=== PATIENT | male | born 1940 | race Caucasian/White ===

== ENCOUNTER 2018-07-13 19:23 | Observation (INO) | payer MEDICAID ==
[~2018-07-13] VITALS: Ht 170.2 cm; Wt 74.2 kg
[2018-07-13] MEDS ORDERED: POTASSIUM CHLORIDE (SR) 20 MEQ TAB PO STA (20:50)
[2018-07-13] MEDS ORDERED: NACL 0.9% 3 ML SYG IV SCH (21:30)
[2018-07-13] MEDS ORDERED: DOCUSATE SODIUM 100 MG CAP PO PRN (21:30)
[2018-07-13] MEDS ORDERED: ACETAMINOPHEN 325 MG TAB PO PRN (21:30)
[2018-07-13] MEDS ORDERED: BISACODYL (EC) 5 MG TAB PO PRN (21:30)
--- NOTE | 2018-07-13 21:30 | ERD ---
ER Documentation Chief Complaint Chief Complaint S/P FALL @1700, LANDED ON HAND, HAVING NUMBNESS AND DIZZINESS; NO CP HPI 77-year-old male with a history of hypertension, diabetes, and arterial bypass in the abdomen and left lower extremity brought in by family after he had an episode of numbness and weakness in his right upper and lower extremities at 5 PM today. He states due to the weakness and numbness, he lost his balance and fell against something but did not his head. His weakness and numbness have resolved but he still feels somewhat dizzy and nauseated. He denies any vision disturbance, significant headache, focal weakness or numbness at this time. He is only on aspirin, no other blood thinners. ROS All systems reviewed and are negative except as per history of present illness. PMhx/Soc History of Surgery: Yes (rt hip, left lower extremity arterial bypass, abdominal aorta surgery. Eye surgery) Anesthesia Reaction: No Hx Neurological Disorder: No Hx Respiratory Disorders: No Hx Cardiac Disorders: Yes (htn ) Hx Psychiatric Problems: No Hx Miscellaneous Medical Probl: Yes (dm2) Hx Alcohol Use: No Hx Substance Use: No Hx Tobacco Use: No Smoking Status: Former smoker FmHx Family History: diabetes Physical Exam Vitals Vital Signs Date Temp Pulse Resp B/P (MAP) Pulse Ox O2 O2 Flow FiO2 Time Delivery Rate 07/13/18 75 15 150/92 94 Room Air 20:05 (111) 07/13/18 98.5 102 19 141/87 100 19:24 (105) Physical Exam Const: No acute distress Head: Atraumatic Eyes: Normal Conjunctiva, PERRLA, EOMI, no nystagmus ENT: Normal External Ears, Nose and Mouth. Neck: Full range of motion. No meningismus. Resp: Clear to auscultation bilaterally Cardio: Regular rate and rhythm, no murmurs. 2+ distal pulses Abd: Soft, non tender, non distended. Normal bowel sounds Skin: No petechiae or rashes Back: No midline or flank tenderness Ext: No cyanosis, or edema. Able to Doppler DP and PT pulses in bilateral lower extremities, left is stronger. Both feet warm to palpation without discoloration. Neur: Awake and alert, oriented x3, cranial nerves intact, strength and sensations intact in all 4 extremities. Normal gait Psych: Normal Mood and Affect Result Diagram: 07/13/18200707/13/182007 Results 24 hrs Laboratory Tests Test 07/13/18 20:08 07/13/18 20:10 07/13/18 21:12 White Blood Count 7.1 10^3/ul Red Blood Count 4.87 10^6/ul Hemoglobin 14.7 g/dl Hematocrit 42.9 % Mean Corpuscular Volume 88.1 fl Mean Corpuscular Hemoglobin 30.2 pg Mean Corpuscular 34.3 g/dl Hemoglobin Concent Red Cell Distribution Width 11.9 % Platelet Count 225 10^3/UL Mean Platelet Volume 11.3 fl Immature Granulocytes % 0.400 % Neutrophils % 67.0 % Lymphocytes % 19.4 % Monocytes % 10.8 % Eosinophils % 1.7 % Basophils % 0.7 % Nucleated Red Blood Cells % 0.0 /100WBC Immature Granulocytes # 0.030 10^3/ul Neutrophils # 4.8 10^3/ul Lymphocytes # 1.4 10^3/ul Monocytes # 0.8 10^3/ul Eosinophils # 0.1 10^3/ul Basophils # 0.1 10^3/ul Nucleated Red Blood Cells # 0.0 10^3/ul Prothrombin Time 12.6 Sec Prothrombin Time Ratio 1.0 INR International 0.93 Normalized Ratio Activated Partial Thromboplast 26.3 Sec Time Sodium Level 142 mmol/L Potassium Level 3.3 mmol/L Chloride Level 101 mmol/L Carbon Dioxide Level 30 mmol/L Anion Gap 11 Blood Urea Nitrogen 20 mg/dl Creatinine 1.00 mg/dl Est Glomerular Filtrat mL/min Rate mL/min Glucose Level 147 mg/dl Hemoglobin A1c 8.6 % Calcium Level 10.4 mg/dl Troponin I < 0.012 ng/ml Triglycerides Level 104 mg/dl Cholesterol Level 180 mg/dl LDL Cholesterol, Calculated 119 mg/dl HDL Cholesterol 40 mg/dl Cholesterol/HDL Ratio 4.5 RATIO Bedside Glucose 138 mg/dL Urine Color YELLOW Urine Clarity CLEAR Urine pH 6.0 Urine Specific [place] 1.015 Urine Ketones NEGATIVE mg/dL Urine Nitrite NEGATIVE mg/dL Urine Bilirubin NEGATIVE mg/dL Urine Urobilinogen NEGATIVE mg/dL Urine Leukocyte Esterase NEGATIVE Alejandra/ul Urine Microscopic RBC 1 /HPF Urine Microscopic WBC 0 /HPF Urine Bacteria FEW /HPF Urine Hemoglobin NEGATIVE mg/dL Urine Glucose NEGATIVE mg/dL Urine Total Protein 2+ mg/dl Current Medications Medications Dose Sig/Maddy Start Time Status Last (Trade) Ordered Route PRN Stop Time Admin Dose Reason Admin Potassium 40 meq ONCE STAT 07/13/18 DC 07/13/18 Chloride PO 20:50 07/13/18 20:59 (Klor-Con 20) 20:51 Procedures/MDM EMERGENT LABS AND DIAGNOSTIC STUDIES: Lab Results above were reviewed and interpreted by me. CBC: no anemia or evidence of infection BMP: Mild hypokalemia. No evidence of clinically significant electrolyte abnormality, acidosis, renal failure, hypoglycemia Troponin within normal limits, not indicative of cardiac ischemia UA: no evidence of infection 12-lead EKG was interpreted by Roly Cooper MD: Normal Sinus Rhythm with ventricular rate of 91 beats per minute Normal axis Normal intervals Nonspecific inferior ST abnormality No STEMI. Radiology Results as interpreted by Radiology below were reviewed by Rod Cooper MD: CT head shows no acute abnormalities Chest x-ray shows no acute abnormalities Initial Nursing notes reviewed. Previous Medical Records requested via the Electronic Health Record. EMERGENCY DEPARTMENT COURSE / MEDICAL DECISION MAKING: Patient presented with transient right-sided weakness that has since resolved. Neurologic exam at this time is normal. Vitals are unremarkable. His symptoms are concerning for possible TIA. He will be admitted for further workup. Accepting Care Team: Current data and ongoing care discussed. Time: Time of admission Primary Provider: Dr. Mauro Pina Diagnosis: Primary Impression: Transient right leg weakness Additional Impression: Dizziness Condition: SHERI Cuellar MD Jul 13, 2018 21:30
[2018-07-14] VITALS (10 sets, daily range): BP systolic 116–138; BP diastolic 70–86; PULSE 62–78; RESP 18; Ht 170.2 cm; Wt 74.2 kg
--- NOTE | 2018-07-14 02:39 | HP ---
Date/Time of Note Date/Time of Note DATE: 07/14/18 TIME: 02:39 Assessment/Plan VTE Prophylaxis SCD applied (from Nsg): Yes Pharmacological prophylaxis: NA/contraindicated Pharm contraindication: low risk/ambulating Lines/Catheters IV Catheter Type (from Nrsg): Saline Lock Assessment/Plan Hospital Course This is a 77-year-old male being admitted to the telemetry floor for observation for: #1 right-sided weakness: TIA versus CVA. At the current time patient symptoms have resolved. However given the description of his episode that occurred we will rule out for neurogenic causes. Will check an MRI of the brain. Will check carotid Doppler ultrasounds. Will check an echocardiogram. Orthostatic vital signs. PT/OT evaluation. Will check hemoglobin A 1C, lipid panel, TSH. Permissive hypertension for the first 24 hours. Consider neurology consultation. #2 Diabetes mellitus: Hemoglobin A1c 8.6. Patient currently on metformin only. Consider initiation of additional oral medications for his diabetes prior to discharge, will hold off on metformin at the current time and put him on insulin sliding scale in case 23 procedure done. #3 hypertension: We will hold home blood pressure medication at the current time will allow for permissive hypertension for the first 24 hours. PRN hydralazine for blood pressure greater than 05/29/2019 #4 DVT GI prophylaxis: SCDs, no GI prophylaxis indicated Further treatment strategy will be implemented as per the clinical course. Result Diagram: 07/13/18200707/13/182007 Results 24hrs Laboratory Tests Test 07/13/18 20:08 07/13/18 20:10 07/13/18 21:12 White Blood Count 7.1 Red Blood Count 4.87 Hemoglobin 14.7 Hematocrit 42.9 Mean Corpuscular Volume 88.1 Mean Corpuscular Hemoglobin 30.2 Mean Corpuscular Hemoglobin Concent 34.3 Red Cell Distribution Width 11.9 Platelet Count 225 Mean Platelet Volume 11.3 H Immature Granulocytes % 0.400 Neutrophils % 67.0 Lymphocytes % 19.4 Monocytes % 10.8 Eosinophils % 1.7 Basophils % 0.7 Nucleated Red Blood Cells % 0.0 Immature Granulocytes # 0.030 Neutrophils # 4.8 Lymphocytes # 1.4 Monocytes # 0.8 Eosinophils # 0.1 Basophils # 0.1 Nucleated Red Blood Cells # 0.0 Prothrombin Time 12.6 Prothrombin Time Ratio 1.0 INR International Normalized Ratio 0.93 Activated Partial Thromboplast Time 26.3 Sodium Level 142 Potassium Level 3.3 L Chloride Level 101 Carbon Dioxide Level 30 Anion Gap 11 Blood Urea Nitrogen 20 Creatinine 1.00 Est Glomerular Filtrat Rate mL/min Glucose Level 147 Hemoglobin A1c 8.6 H Calcium Level 10.4 H Troponin I < 0.012 Triglycerides Level 104 Cholesterol Level 180 LDL Cholesterol, Calculated 119 HDL Cholesterol 40 Cholesterol/HDL Ratio 4.5 Bedside Glucose 138 Urine Color YELLOW Urine Clarity CLEAR Urine pH 6.0 Urine Specific [facility] 1.015 Urine Ketones NEGATIVE Urine Nitrite NEGATIVE Urine Bilirubin NEGATIVE Urine Urobilinogen NEGATIVE Urine Leukocyte Esterase NEGATIVE Urine Microscopic RBC 1 Urine Microscopic WBC 0 Urine Bacteria FEW A Urine Hemoglobin NEGATIVE Urine Glucose NEGATIVE Urine Total Protein 2+ H Urine Opiates Screen Negative Urine Barbiturates Negative Urine Amphetamines Screen Negative Urine Benzodiazepines Screen Negative Urine Cocaine Screen Negative Urine Cannabinoids Negative HPI/ROS Admit Date/Time Admit Date/Time Jul 13, 2018 at 21:27 Hx of Present Illness Chief complaint: Right-sided weakness This is a 77-year-old male with a history of hypertension, diabetes, and arterial bypass in the abdomen and left lower extremity brought in by family after he had an episode of numbness and weakness in his right upper and lower extremities at 5 PM today. He states due to the weakness and numbness, he lost his balance and fell against something but did not his head. His weakness and numbness have resolved but he still feels somewhat dizzy and nauseated. He denies any vision disturbance, significant headache, focal weakness or numbness at this time. He is only on aspirin, no other blood thinners. Patient denied any chest pain or any shortness of breath. Allergies: NKDA medications: See DIMITRIOS SIMMS Const: As per HPI Eyes : No pain discharge or redness or change in visual acuity ENT: No pain, sore throat, congestion, congestion, dysphagia or discharge Respiratory: No shortness of breath, cough, sputum, wheezing, or pleuritic pain Cardiovascular: No chest pain, palpitation, PND, or edema GI : no change in appetite, abdominal pain, nausea, vomiting, diarrhea, constipation, or change in the color his stool Genitourinary: No dysuria, hematuria, flank pain , discharge or CVA tenderness Musculoskeletal: No joint pain, back pain, neck pain, restricted range of motion in neck or joints Skin: No rash, bruising or hives Neuro: As per HPI Endocrine: No polyuria, polydipsia, temperature intolerance Psych: No hallucination, depression, anxiety or suicidal ideation PMH/Family/Social Past Medical History Hypertension, diabetes mellitus, questionable vascular disease Medications Current Medications IV Flush (NS 3 ml) 3 ml PER PROTOCOL IV ; Start 07/13/18 at 21:30 Aspirin (Aspirin) 81 mg DAILY PO ; Start 07/14/18 at 09:00 Acetaminophen (Tylenol Tab) 650 mg Q6H PRN PO .PAIN 1-3 OR TEMP; Start 07/13/18 at 21:30 Docusate Sodium (Colace) 100 mg Q12H PRN PO .CONSTIPATION; Start 07/13/18 at 21:30 Bisacodyl (Dulcolax) 5 mg DAILY PRN PO .CONSTIPATION; Start 07/13/18 at 21:30 Coded Allergies: No Known Allergy (Unverified , 07/13/18) Past Surgical History Questionable abdominal bypass, left lower extremity bypass Family History Significant Family History: no pertinent family hx Social History Alcohol Use: none Smoking Status: Former smoker Drug Use: none Exam/Review of Systems Vital Signs Vitals Vital Signs Date Temp Pulse Resp B/P (MAP) Pulse Ox O2 O2 Flow FiO2 Time Delivery Rate 07/14/18 62 01:38 07/14/18 98.0 13 141/86 98 Room Air 01:09 (104) Exam Exam General: Patient is a pleasant male currently lying in bed in no acute distress HEENT: Atraumatic, normocephalic. The pupils are equal, round and reactive. Extraocular motor are intact, mucous membranes mildly dry Neck: Supple with full range of motion. No rigidity or meningismus Chest: Nontender Lungs: Clear to auscultation bilaterally no crackles rales or wheezing Heart: Normal S1-S2, Regular rhythm and rate. No murmur, S3, or S4 Abdomen: Surgical scar present of the lower abdomen, soft , nontender, nondistended , bowel sounds are present. No guarding no rebound tenderness , No masses or organomegaly. No costovertebral temporal angle mass Extremities: Normal to inspection, no edema no cyanosis Neurologic: Normal mental status, speech normal, cranial nerves II through XII are intact, motor and sensory are intact, no focal weakness, strength 5 out of 5 in bilateral upper and lower extremities Additional Comments PROCEDURE: CT Brain without contrast. CLINICAL INDICATION: Possible stroke TECHNIQUE: A CT of the brain was performed on a multi-slice CT scanner utilizing axial imaging from the skull base through the vertex without IV co ntrast. Coronal and sagittal re-formations were created. Images were reviewed on a PACS workstation. The CTDIvol is 39 mGy and the DLP is 634 mGycm. DICOM images are available. 3-D reconstructions were not performed. One or more of the following dose reduction techniques were utilized: 1.) Automated exposure control 2.) Adjustment of the mA +/- kV according to patient's size 3.) Use of iterative reconstruction technique. COMPARISON: None FINDINGS: The basilar cisterns, ventricular spaces and sulcal spaces are normal in size and configuration. There is no midline shift or other evidence of mass effect. There are no abnormal foci of increased attenuation in the brain parenchyma. No abnormal foci of diminished attenuation are present. Bone-windows show no lytic or blastic calvarial lesions. The visualized paranasal sinuses and mastoid air cells are clear. There is calcification in the intracranial internal carotid arteries. IMPRESSION: 1. No evidence of intracranial hemorrhage, mass, or acute infarct. 2. Atherosclerosis of the intracranial internal carotid arteries. RPTAT:AAJJ Physician Andrez Date Time Electronically viewed and signed by Physician Andrez on 07/13/2018 20:27 GW/ CC: SHERI PACHECO MD [id number] PROCEDURE: XR Chest. CLINICAL INDICATION: Dyspnea TECHNIQUE: Single frontal chest x-ray. COMPARISON: None available FINDINGS: Diminished lung volumes with compressive changes. Vascular crowding and bilateral basilar atelectasis. No acute infiltrate is seen, effusion, or pneumothorax. The cardiomediastinal silhouette is normal. Soft tissues and bony structures are unremarkable. Benign chronic changes of the surrounding osseous structures. IMPRESSION: 1. Low lung volumes with compressive changes and basilar atelectasis. 2. Otherwise, unremarkable chest x-ray. No acute infiltrate is seen. RPTAT: HMJB .Trey Yoo MD, MD Date Time Electronically viewed and signed by .Trey Yoo MD, MD on 07/13/2018 20:20 .B/ CC: SHERI PCAHECO MD [id number] BEV FRIAS Jul 14, 2018 02:39
[2018-07-14] MEDS ORDERED: AMLO-147 PO (02:54)
[2018-07-14] MEDS ORDERED: BENA40TA56 PO (02:54)
[2018-07-14] MEDS ORDERED: CARV3.1260 PO (02:54)
[2018-07-14] MEDS ORDERED: HYDR50TA3 PO (02:54)
[2018-07-14] MEDS ORDERED: METF500T24 PO (02:54)
[2018-07-14] MEDS ORDERED: hydrALAzine 20 MG INJ IV PRN (07:00)
[2018-07-14] MEDS: ASPIRIN 81 MG TAB PO SCH (09:20)
[2018-07-14] MEDS ORDERED: DEXTROSE 50% 50 ML SYRINGE IV PRN ×2 (10:00)
[2018-07-14] MEDS ORDERED: GLUCAGON 1 MG INJ IM PRN (10:00)
[2018-07-14] MEDS ORDERED: GLUCOSE GEL 15 GRAM TUBE PO PRN ×2 (10:00)
[2018-07-14] MEDS ORDERED: ATORVASTATIN 80 MG TAB PO ONE (10:00)
[2018-07-14] MEDS ORDERED: GLUCOSE GEL 15 GRAM TUBE BUCCAL PRN (10:00)
[2018-07-14] MEDS ORDERED: MAGNESIUM SULFATE 2 GM/50 ML 50 ML IVPB ONE (10:00)
--- NOTE | 2018-07-14 10:01 | PN ---
Date/Time of Note Date/Time of Note DATE: 07/14/18 TIME: 09:50 Assessment/Plan VTE Prophylaxis Risk score (from Ns)>0 risk: 3 SCD applied (from Ns): Yes Pharmacological prophylaxis: other Lines/Catheters [facility] Per[facility] IV Assessment/Plan Hospital Course S: No acute events overnight, waiting for MRI brain. Presently working with physical therapy per O: VS - see below PE: General: lying in bed in no acute distress HEENT: Atraumatic, normocephalic. The pupils are equal, round and reactive. Extraocular motor are intact Neck: Supple with full range of motion. Lungs: Clear to auscultation bilaterally no crackles rales or wheezing Heart: Normal S1-S2, Regular rhythm and rate. No murmur, S3, or S4 Abdomen: Surgical scar present of the lower abdomen, soft , nontender, nondistended , bowel sounds are present. No guarding no rebound tenderness Extremities: no edema no cyanosis Neurologic: Normal mental status, speech normal, cranial nerves II through XII are intact, motor and sensory are intact, no focal weakness, strength 5 out of 5 in bilateral upper and lower extremities A/P: 77-year-old male being admitted to the telemetry floor for observation for: #1 right-sided weakness: TIA versus CVA, presently the patient symptoms have resolved - we will rule out for neurogenic causes. -Continue neuro checks, follow up results of MRI of the brain, carotid Doppler ultrasounds, and echocardiogram. - f/u PT/OT evaluation. -Allow for permissive hypertension for the first 24 hours, and follow-up recommendations from neurology consultation. #2 Diabetes mellitus: Hemoglobin A1c 8.6. Patient currently on metformin only. -Monitor, add sliding scale insulin #3 hypertension: Blood pressure presently stable -Again, we will hold home blood pressure medication at the current time will allow for permissive hypertension for the first 24 hours. - PRN hydralazine for blood pressure greater than 220 sys bp #4 DVT GI prophylaxis: SCDs, no GI prophylaxis indicated Further treatment strategy will be implemented as per the clinical course. Result Diagram: 07/14/18 0536 07/14/18 0536 Results 24hrs Laboratory Tests Test 07/13/18 20:08 07/13/18 20:10 07/13/18 21:12 07/14/18 05:36 White Blood Count 7.1 6.1 Red Blood Count 4.87 4.78 Hemoglobin 14.7 14.4 Hematocrit 42.9 42.8 Mean Corpuscular Volume 88.1 89.5 Mean Corpuscular 30.2 30.1 Hemoglobin Mean Corpuscular 34.3 33.6 Hemoglobin Concent Red Cell Distribution 11.9 11.9 Width Platelet Count 225 198 Mean Platelet Volume 11.3 H 11.4 H Immature Granulocytes % 0.400 0.500 H Neutrophils % 67.0 58.3 Lymphocytes % 19.4 21.5 Monocytes % 10.8 15.4 H Eosinophils % 1.7 3.5 Basophils % 0.7 0.8 Nucleated Red Blood 0.0 0.0 Cells % Immature Granulocytes # 0.030 0.030 Neutrophils # 4.8 3.5 Lymphocytes # 1.4 1.3 Monocytes # 0.8 0.9 Eosinophils # 0.1 0.2 Basophils # 0.1 0.1 Nucleated Red Blood 0.0 0.0 Cells # Prothrombin Time 12.6 Prothrombin Time Ratio 1.0 INR International 0.93 Normalized Ratio Activated 26.3 Partial Thromboplast Time Sodium Level 142 140 Potassium Level 3.3 L 3.9 Chloride Level 101 101 Carbon Dioxide Level 30 31 Anion Gap 11 8 Blood Urea Nitrogen 20 18 Creatinine 1.00 0.79 Est Glomerular Filtrat Rate mL/min Glucose Level 147 157 Hemoglobin A1c 8.6 H 8.6 H Calcium Level 10.4 H 9.6 Troponin I < 0.012 < 0.012 Triglycerides Level 104 130 Cholesterol Level 180 159 LDL Cholesterol, 119 102 Calculated HDL Cholesterol 40 31 Cholesterol/HDL Ratio 4.5 5.1 Bedside Glucose 138 Urine Color YELLOW Urine Clarity CLEAR Urine pH 6.0 Urine Specific [place] 1.015 Urine Ketones NEGATIVE Urine Nitrite NEGATIVE Urine Bilirubin NEGATIVE Urine Urobilinogen NEGATIVE Urine Leukocyte Esterase NEGATIVE Urine Microscopic RBC 1 Urine Microscopic WBC 0 Urine Bacteria FEW A Urine Hemoglobin NEGATIVE Urine Glucose NEGATIVE Urine Total Protein 2+ H Urine Opiates Screen Negative Urine Barbiturates Negative Urine Amphetamines Negative Screen Urine Benzodiazepines Negative Screen Urine Cocaine Screen Negative Urine Cannabinoids Negative Magnesium Level 1.6 L Total Bilirubin 0.5 Direct Bilirubin 0.00 Indirect Bilirubin 0.5 Aspartate Amino 23 Transf (AST/SGOT) Alanine 27 Aminotransferase (ALT/SG PT) Alkaline Phosphatase 74 Creatine Kinase 85 Creatine Kinase Index 2.1 Creatinine Kinase MB 1.77 (Mass) Total Protein 6.6 Albumin 3.8 Globulin 2.80 Albumin/Globulin Ratio 1.35 Thyroid Stimulating 1.040 Hormone (TSH) Exam/Review of Systems Exam Vitals Vital Signs Date Temp Pulse Resp B/P (MAP) Pulse Ox O2 O2 Flow FiO2 Time Delivery Rate 07/14/18 64 08:50 07/14/18 98.0 18 138/80 95 Room Air 08:23 (99) Intake and Output 07/13/18 07/13/18 07/14/18 1515:00 23:00 07:00 OutputOutput Total 250 ml BalanceBalance -250 ml Results Results 24hrs Laboratory Tests Test 07/13/18 20:08 07/13/18 20:10 07/13/18 21:12 07/14/18 05:36 White Blood Count 7.1 6.1 Red Blood Count 4.87 4.78 Hemoglobin 14.7 14.4 Hematocrit 42.9 42.8 Mean Corpuscular Volume 88.1 89.5 Mean Corpuscular 30.2 30.1 Hemoglobin Mean Corpuscular 34.3 33.6 Hemoglobin Concent Red Cell Distribution 11.9 11.9 Width Platelet Count 225 198 Mean Platelet Volume 11.3 H 11.4 H Immature Granulocytes % 0.400 0.500 H Neutrophils % 67.0 58.3 Lymphocytes % 19.4 21.5 Monocytes % 10.8 15.4 H Eosinophils % 1.7 3.5 Basophils % 0.7 0.8 Nucleated Red Blood 0.0 0.0 Cells % Immature Granulocytes # 0.030 0.030 Neutrophils # 4.8 3.5 Lymphocytes # 1.4 1.3 Monocytes # 0.8 0.9 Eosinophils # 0.1 0.2 Basophils # 0.1 0.1 Nucleated Red Blood 0.0 0.0 Cells # Prothrombin Time 12.6 Prothrombin Time Ratio 1.0 INR International 0.93 Normalized Ratio Activated 26.3 Partial Thromboplast Time Sodium Level 142 140 Potassium Level 3.3 L 3.9 Chloride Level 101 101 Carbon Dioxide Level 30 31 Anion Gap 11 8 Blood Urea Nitrogen 20 18 Creatinine 1.00 0.79 Est Glomerular Filtrat Rate mL/min Glucose Level 147 157 Hemoglobin A1c 8.6 H 8.6 H Calcium Level 10.4 H 9.6 Troponin I < 0.012 < 0.012 Triglycerides Level 104 130 Cholesterol Level 180 159 LDL Cholesterol, 119 102 Calculated HDL Cholesterol 40 31 Cholesterol/HDL Ratio 4.5 5.1 Bedside Glucose 138 Urine Color YELLOW Urine Clarity CLEAR Urine pH 6.0 Urine Specific [place] 1.015 Urine Ketones NEGATIVE Urine Nitrite NEGATIVE Urine Bilirubin NEGATIVE Urine Urobilinogen NEGATIVE Urine Leukocyte Esterase NEGATIVE Urine Microscopic RBC 1 Urine Microscopic WBC 0 Urine Bacteria FEW A Urine Hemoglobin NEGATIVE Urine Glucose NEGATIVE Urine Total Protein 2+ H Urine Opiates Screen Negative Urine Barbiturates Negative Urine Amphetamines Negative Screen Urine Benzodiazepines Negative Screen Urine Cocaine Screen Negative Urine Cannabinoids Negative Magnesium Level 1.6 L Total Bilirubin 0.5 Direct Bilirubin 0.00 Indirect Bilirubin 0.5 Aspartate Amino 23 Transf (AST/SGOT) Alanine 27 Aminotransferase (ALT/SG PT) Alkaline Phosphatase 74 Creatine Kinase 85 Creatine Kinase Index 2.1 Creatinine Kinase MB 1.77 (Mass) Total Protein 6.6 Albumin 3.8 Globulin 2.80 Albumin/Globulin Ratio 1.35 Thyroid Stimulating 1.040 Hormone (TSH) Medications Medication Current Medications IV Flush (NS 3 ml) 3 ml PER PROTOCOL IV ; Start 07/13/18 at 21:30 Aspirin (Aspirin) 81 mg DAILY PO Last administered on 07/14/18at 09:20; Admin Dose 81 MG; Start 07/14/18 at 09:00 Acetaminophen (Tylenol Tab) 650 mg Q6H PRN PO .PAIN 1-3 OR TEMP; Start 07/13/18 at 21:30 Docusate Sodium (Colace) 100 mg Q12H PRN PO .CONSTIPATION; Start 07/13/18 at 21:30 Bisacodyl (Dulcolax) 5 mg DAILY PRN PO .CONSTIPATION; Start 07/13/18 at 21:30 Hydralazine HCl (Apresoline) 10 mg Q4H PRN IV ELEVATED BLOOD PRESSURE; Start 07/14/18 at 07:00 ARISTEO CABRAL Jul 14, 2018 10:01
[2018-07-14] MEDS: INSULIN ASPART [NOVOLOG] 3 ML PEN SC SCH ×3 (11:56→20:22)
--- NOTE | 2018-07-14 12:34 | CONS ---
Consultation Date/Type/Reason Admit Date/Time Jul 13, 2018 at 21:27 Type of Consult Neurology Date/Time of Note DATE: 07/14/18 TIME: 12:34 Exam/Review of Systems Exam Vitals Vital Signs Date Temp Pulse Resp B/P (MAP) Pulse Ox O2 O2 Flow FiO2 Time Delivery Rate 07/14/18 98.0 76 18 128/70 97 Room Air 11:15 (89) Intake and Output 07/13/18 07/13/18 07/14/18 1515:00 23:00 07:00 OutputOutput Total 250 ml BalanceBalance -250 ml Results Result Diagram: 07/14/18 0536 07/14/18 0536 Results 24hrs Laboratory Tests Test 07/13/18 20:08 07/13/18 20:10 07/13/18 21:12 07/14/18 05:36 White Blood Count 7.1 6.1 Red Blood Count 4.87 4.78 Hemoglobin 14.7 14.4 Hematocrit 42.9 42.8 Mean Corpuscular Volume 88.1 89.5 Mean Corpuscular 30.2 30.1 Hemoglobin Mean Corpuscular 34.3 33.6 Hemoglobin Concent Red Cell Distribution 11.9 11.9 Width Platelet Count 225 198 Mean Platelet Volume 11.3 H 11.4 H Immature Granulocytes % 0.400 0.500 H Neutrophils % 67.0 58.3 Lymphocytes % 19.4 21.5 Monocytes % 10.8 15.4 H Eosinophils % 1.7 3.5 Basophils % 0.7 0.8 Nucleated Red Blood 0.0 0.0 Cells % Immature Granulocytes # 0.030 0.030 Neutrophils # 4.8 3.5 Lymphocytes # 1.4 1.3 Monocytes # 0.8 0.9 Eosinophils # 0.1 0.2 Basophils # 0.1 0.1 Nucleated Red Blood 0.0 0.0 Cells # Prothrombin Time 12.6 Prothrombin Time Ratio 1.0 INR International 0.93 Normalized Ratio Activated 26.3 Partial Thromboplast Time Sodium Level 142 140 Potassium Level 3.3 L 3.9 Chloride Level 101 101 Carbon Dioxide Level 30 31 Anion Gap 11 8 Blood Urea Nitrogen 20 18 Creatinine 1.00 0.79 Est Glomerular Filtrat Rate mL/min Glucose Level 147 157 Hemoglobin A1c 8.6 H 8.6 H Calcium Level 10.4 H 9.6 Troponin I < 0.012 < 0.012 Triglycerides Level 104 130 Cholesterol Level 180 159 LDL Cholesterol, 119 102 Calculated HDL Cholesterol 40 31 Cholesterol/HDL Ratio 4.5 5.1 Bedside Glucose 138 Urine Color YELLOW Urine Clarity CLEAR Urine pH 6.0 Urine Specific [place] 1.015 Urine Ketones NEGATIVE Urine Nitrite NEGATIVE Urine Bilirubin NEGATIVE Urine Urobilinogen NEGATIVE Urine Leukocyte Esterase NEGATIVE Urine Microscopic RBC 1 Urine Microscopic WBC 0 Urine Bacteria FEW A Urine Hemoglobin NEGATIVE Urine Glucose NEGATIVE Urine Total Protein 2+ H Urine Opiates Screen Negative Urine Barbiturates Negative Urine Amphetamines Negative Screen Urine Benzodiazepines Negative Screen Urine Cocaine Screen Negative Urine Cannabinoids Negative Magnesium Level 1.6 L Total Bilirubin 0.5 Direct Bilirubin 0.00 Indirect Bilirubin 0.5 Aspartate Amino 23 Transf (AST/SGOT) Alanine 27 Aminotransferase (ALT/SG PT) Alkaline Phosphatase 74 Creatine Kinase 85 Creatine Kinase Index 2.1 Creatinine Kinase MB 1.77 (Mass) Total Protein 6.6 Albumin 3.8 Globulin 2.80 Albumin/Globulin Ratio 1.35 Thyroid Stimulating 1.040 Hormone (TSH) Test 07/14/18 11:51 Bedside Glucose 188 Medications Medication Current Medications IV Flush (NS 3 ml) 3 ml PER PROTOCOL IV ; Start 07/13/18 at 21:30 Aspirin (Aspirin) 81 mg DAILY PO Last administered on 07/14/18at 09:20; Admin Dose 81 MG; Start 07/14/18 at 09:00 Acetaminophen (Tylenol Tab) 650 mg Q6H PRN PO .PAIN 1-3 OR TEMP; Start 07/13/18 at 21:30 Docusate Sodium (Colace) 100 mg Q12H PRN PO .CONSTIPATION; Start 07/13/18 at 21:30 Bisacodyl (Dulcolax) 5 mg DAILY PRN PO .CONSTIPATION; Start 07/13/18 at 21:30 Hydralazine HCl (Apresoline) 10 mg Q4H PRN IV ELEVATED BLOOD PRESSURE; Start 07/14/18 at 07:00 Diagnostic Test (Pha) (Accu-Chek) 1 ea 02 XX ; Start 07/15/18 at 02:00 Insulin Aspart (Novolog Insulin Pen) NOVOLOG *MILD* ALGORITHM WITH MEALS BEDTIME SC Last administered on 07/14/18at 11:56; Admin Dose 2 UNIT; Start 07/14/18 at 11:50 Miscellaneous Information 1 ea NOTE XX ; Start 07/14/18 at 10:00 Glucose (Glutose) 15 gm Q15M PRN PO DECREASED GLUCOSE; Start 07/14/18 at 10:00 Glucose (Glutose) 22.5 gm Q15M PRN PO DECREASED GLUCOSE; Start 07/14/18 at 10:00 Dextrose (D50w Syringe) 25 ml Q15M PRN IV DECREASED GLUCOSE; Start 07/14/18 at 10:00 Dextrose (D50w Syringe) 50 ml Q15M PRN IV DECREASED GLUCOSE; Start 07/14/18 at 10:00 Glucagon (Glucagen) 1 mg Q15M PRN IM DECREASED GLUCOSE; Start 07/14/18 at 10:00 Glucose (Glutose) 15 gm Q15M PRN BUCCAL DECREASED GLUCOSE; Start 07/14/18 at 10:00 Past Medical History Home Meds Reported Medications Amlodipine Besylate* (Amlodipine Besylate*) 10 Mg Tablet, 10 MG PO DAILY, #30 TAB 07/14/18 Benazepril Hcl* (Benazepril Hcl*) 40 Mg Tablet, 40 MG PO DAILY, #30 TAB 07/14/18 Hydrochlorothiazide* (Hydrochlorothiazide*) 50 Mg Tab, 50 MG PO DAILY, #30 TAB 07/14/18 Carvedilol* (Carvedilol*) 3.125 Mg Tablet, 3.125 MG PO BID, #60 TAB 07/14/18 Metformin Hcl* (Metformin Hcl*) 500 Mg Tablet, 500 MG PO BID WITH MEALS, #30 TAB 07/14/18 Medications Current Medications IV Flush (NS 3 ml) 3 ml PER PROTOCOL IV ; Start 07/13/18 at 21:30 Aspirin (Aspirin) 81 mg DAILY PO Last administered on 07/14/18at 09:20; Admin Dose 81 MG; Start 07/14/18 at 09:00 Acetaminophen (Tylenol Tab) 650 mg Q6H PRN PO .PAIN 1-3 OR TEMP; Start 07/13/18 at 21:30 Docusate Sodium (Colace) 100 mg Q12H PRN PO .CONSTIPATION; Start 07/13/18 at 21: 30 Bisacodyl (Dulcolax) 5 mg DAILY PRN PO .CONSTIPATION; Start 07/13/18 at 21:30 Hydralazine HCl (Apresoline) 10 mg Q4H PRN IV ELEVATED BLOOD PRESSURE; Start 07/14/18 at 07:00 Diagnostic Test (Pha) (Accu-Chek) 1 ea 02 XX ; Start 07/15/18 at 02:00 Insulin Aspart (Novolog Insulin Pen) NOVOLOG *MILD* ALGORITHM WITH MEALS BEDTIME SC Last administered on 07/14/18at 11:56; Admin Dose 2 UNIT; Start 9 at 11:50 Miscellaneous Information 1 ea NOTE XX ; Start 07/14/18 at 10:00 Glucose (Glutose) 15 gm Q15M PRN PO DECREASED GLUCOSE; Start 07/14/18 at 10:00 Glucose (Glutose) 22.5 gm Q15M PRN PO DECREASED GLUCOSE; Start 07/14/18 at 10:00 Dextrose (D50w Syringe) 25 ml Q15M PRN IV DECREASED GLUCOSE; Start 07/14/18 at 10:00 Dextrose (D50w Syringe) 50 ml Q15M PRN IV DECREASED GLUCOSE; Start 07/14/18 at 1 0:00 Glucagon (Glucagen) 1 mg Q15M PRN IM DECREASED GLUCOSE; Start 07/14/18 at 10:00 Glucose (Glutose) 15 gm Q15M PRN BUCCAL DECREASED GLUCOSE; Start 07/14/18 at 10:00 Allergies: Coded Allergies: No Known Allergy (Unverified , 07/13/18) Social History Alcohol Use: none Smoking Status: Former smoker Drug Use: none SALLY CANO NP Jul 14, 2018 12:34
--- NOTE | 2018-07-14 13:10 | CONS ---
Assessment/Plan Assessment/Plan Hospital Course 77 M c/ DM 2, who presents for evaluation of transient R arm and leg weakness and numbness for 5-10 minutes...for which neurology is consulted... The clinical picture is consistent w/ TIA/minor stroke. Head CT is unrevealing. CUS is the same. 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 He states due to the weakness and numbness, he lost his balance and fell against something but did not his head. His weakness and numbness have resolved but he still feels somewhat dizzy and nauseated. He denies any vision disturbance, significant headache, focal weakness or numbness at this time. He is only on aspirin, no other blood thinners. Patient denied any chest pain or any shortness of breath. Allergies: NKDA 12 PT ROS ow neg Exam/Review of Systems Exam Vitals Vital Signs Date Temp Pulse Resp B/P (MAP) Pulse Ox O2 O2 Flow FiO2 Time Delivery Rate 07/14/18 98.0 76 18 128/70 97 Room Air 11:15 (89) Intake and Output 07/13/18 07/13/18 07/14/18 1414:59 22:59 06:59 OutputOutput Total 250 ml BalanceBalance -250 ml Exam PE: Gen Appearance: No Apparent Distress HEENT: Normocephalic Cardiovascular: Regular rate Lungs: Clear bilaterally Abdomen: Soft Extremities: Dry NE: The patient was alert and oriented. Language was normal. Fund of knowledge was normal. Pupils were equal and reactive to light. There was no afferent pupillary defect. Visual ji were normal. Funduscopic examination was limited. Extra-ocular movements were full. Ptosis was absent. There was no nystagmus. Facial sensation was normal. Face was symmetric with normal strength. Hearing was intact. Palate movements were normal. Neck strength was normal. There was normal tongue bulk and speed of movement. Tone was normal. Muscle bulk was normal. I did not see fasciculations. Arms and legs were strong to confrontation. Vibration sensation was normal. Temperature and pinprick sensation was normal. Rapid alternating movements were normal. There was no dysmetria. There was no i ntention tremor. Gait was deferred due to bedrest. Arm and leg reflexes were 2+ and symmetric. Cherry's sign was absent. Plantar responses were flexor. Results Result Diagram: 07/14/18 0536 07/14/18 0536 Results 24hrs Laboratory Tests Test 07/13/18 20:08 07/13/18 20:10 07/13/18 21:12 07/14/18 05:36 White Blood Count 7.1 6.1 Red Blood Count 4.87 4.78 Hemoglobin 14.7 14.4 Hematocrit 42.9 42.8 Mean Corpuscular Volume 88.1 89.5 Mean Corpuscular 30.2 30.1 Hemoglobin Mean Corpuscular 34.3 33.6 Hemoglobin Concent Red Cell Distribution 11.9 11.9 Width Platelet Count 225 198 Mean Platelet Volume 11.3 H 11.4 H Immature Granulocytes % 0.400 0.500 H Neutrophils % 67.0 58.3 Lymphocytes % 19.4 21.5 Monocytes % 10.8 15.4 H Eosinophils % 1.7 3.5 Basophils % 0.7 0.8 Nucleated Red Blood 0.0 0.0 Cells % Immature Granulocytes # 0.030 0.030 Neutrophils # 4.8 3.5 Lymphocytes # 1.4 1.3 Monocytes # 0.8 0.9 Eosinophils # 0.1 0.2 Basophils # 0.1 0.1 Nucleated Red Blood 0.0 0.0 Cells # Prothrombin Time 12.6 Prothrombin Time Ratio 1.0 INR International 0.93 Normalized Ratio Activated 26.3 Partial Thromboplast Time Sodium Level 142 140 Potassium Level 3.3 L 3.9 Chloride Level 101 101 Carbon Dioxide Level 30 31 Anion Gap 11 8 Blood Urea Nitrogen 20 18 Creatinine 1.00 0.79 Est Glomerular Filtrat Rate mL/min Glucose Level 147 157 Hemoglobin A1c 8.6 H 8.6 H Calcium Level 10.4 H 9.6 Troponin I < 0.012 < 0.012 Triglycerides Level 104 130 Cholesterol Level 180 159 LDL Cholesterol, 119 102 Calculated HDL Cholesterol 40 31 Cholesterol/HDL Ratio 4.5 5.1 Bedside Glucose 138 Urine Color YELLOW Urine Clarity CLEAR Urine pH 6.0 Urine Specific [place] 1.015 Urine Ketones NEGATIVE Urine Nitrite NEGATIVE Urine Bilirubin NEGATIVE Urine Urobilinogen NEGATIVE Urine Leukocyte Esterase NEGATIVE Urine Microscopic RBC 1 Urine Microscopic WBC 0 Urine Bacteria FEW A Urine Hemoglobin NEGATIVE Urine Glucose NEGATIVE Urine Total Protein 2+ H Urine Opiates Screen Negative Urine Barbiturates Negative Urine Amphetamines Negative Screen Urine Benzodiazepines Negative Screen Urine Cocaine Screen Negative Urine Cannabinoids Negative Magnesium Level 1.6 L Total Bilirubin 0.5 Direct Bilirubin 0.00 Indirect Bilirubin 0.5 Aspartate Amino 23 Transf (AST/SGOT) Alanine 27 Aminotransferase (ALT/SG PT) Alkaline Phosphatase 74 Creatine Kinase 85 Creatine Kinase Index 2.1 Creatinine Kinase MB 1.77 (Mass) Total Protein 6.6 Albumin 3.8 Globulin 2.80 Albumin/Globulin Ratio 1.35 Thyroid Stimulating 1.040 Hormone (TSH) Test 07/14/18 11:51 Bedside Glucose 188 Medications Medication Current Medications IV Flush (NS 3 ml) 3 ml PER PROTOCOL IV ; Start 07/13/18 at 21:30 Aspirin (Aspirin) 81 mg DAILY PO Last administered on 07/14/18at 09:20; Admin Dose 81 MG; Start 07/14/18 at 09:00 Acetaminophen (Tylenol Tab) 650 mg Q6H PRN PO .PAIN 1-3 OR TEMP; Start 07/13/18 at 21:30 Docusate Sodium (Colace) 100 mg Q12H PRN PO .CONSTIPATION; Start 07/13/18 at 21:30 Bisacodyl (Dulcolax) 5 mg DAILY PRN PO .CONSTIPATION; Start 07/13/18 at 21:30 Hydralazine HCl (Apresoline) 10 mg Q4H PRN IV ELEVATED BLOOD PRESSURE; Start 07/14/18 at 07:00 Diagnostic Test (Pha) (Accu-Chek) 1 ea 02 XX ; Start 07/15/18 at 02:00 Insulin Aspart (Novolog Insulin Pen) NOVOLOG *MILD* ALGORITHM WITH MEALS BEDTIME SC Last administered on 07/14/18at 11:56; Admin Dose 2 UNIT; Start 07/14/18 at 11:50 Miscellaneous Information 1 ea NOTE XX ; Start 07/14/18 at 10:00 Glucose (Glutose) 15 gm Q15M PRN PO DECREASED GLUCOSE; Start 07/14/18 at 10:00 Glucose (Glutose) 22.5 gm Q15M PRN PO DECREASED GLUCOSE; Start 07/14/18 at 10:00 Dextrose (D50w Syringe) 25 ml Q15M PRN IV DECREASED GLUCOSE; Start 07/14/18 at 10:00 Dextrose (D50w Syringe) 50 ml Q15M PRN IV DECREASED GLUCOSE; Start 07/14/18 at 10:00 Glucagon (Glucagen) 1 mg Q15M PRN IM DECREASED GLUCOSE; Start 07/14/18 at 10:00 Glucose (Glutose) 15 gm Q15M PRN BUCCAL DECREASED GLUCOSE; Start 07/14/18 at 10:00 Past Medical History reviewed Home Meds Reported Medications Amlodipine Besylate* (Amlodipine Besylate*) 10 Mg Tablet, 10 MG PO DAILY, #30 TAB 07/14/18 Benazepril Hcl* (Benazepril Hcl*) 40 Mg Tablet, 40 MG PO DAILY, #30 TAB 07/14/18 Hydrochlorothiazide* (Hydrochlorothiazide*) 50 Mg Tab, 50 MG PO DAILY, #30 TAB 07/14/18 Carvedilol* (Carvedilol*) 3.125 Mg Tablet, 3.125 MG PO BID, #60 TAB 07/14/18 Metformin Hcl* (Metformin Hcl*) 500 Mg Tablet, 500 MG PO BID WITH MEALS, #30 TAB 07/14/18 Medications Current Medications IV Flush (NS 3 ml) 3 ml PER PROTOCOL IV ; Start 07/13/18 at 21:30 Aspirin (Aspirin) 81 mg DAILY PO Last administered on 07/14/18at 09:20; Admin Dose 81 MG; Start 07/14/18 at 09:00 Acetaminophen (Tylenol Tab) 650 mg Q6H PRN PO .PAIN 1-3 OR TEMP; Start 07/13/18 at 21:30 Docusate Sodium (Colace) 100 mg Q12H PRN PO .CONSTIPATION; Start 07/13/18 at 21:30 Bisacodyl (Dulcolax) 5 mg DAILY PRN PO .CONSTIPATION; Start 07/13/18 at 21:30 Hydralazine HCl (Apresoline) 10 mg Q4H PRN IV ELEVATED BLOOD PRESSURE; Start 07/14/18 at 07:00 Diagnostic Test (Pha) (Accu-Chek) 1 ea 02 XX ; Start 07/15/18 at 02:00 Insulin Aspart (Novolog Insulin Pen) NOVOLOG *MILD* ALGORITHM WITH MEALS BEDTIME SC Last administered on 07/14/18at 11:56; Admin Dose 2 UNIT; Start 07/14/18 at 11:50 Miscellaneous Information 1 ea NOTE XX ; Start 07/14/18 at 10:00 Glucose (Glutose) 15 gm Q15M PRN PO DECREASED GLUCOSE; Start 07/14/18 at 10:00 Glucose (Glutose) 22.5 gm Q15M PRN PO DECREASED GLUCOSE; Start 07/14/18 at 10:00 Dextrose (D50w Syringe) 25 ml Q15M PRN IV DECREASED GLUCOSE; Start 07/14/18 at 10:00 Dextrose (D50w Syringe) 50 ml Q15M PRN IV DECREASED GLUCOSE; Start 07/14/18 at 10:00 Glucagon (Glucagen) 1 mg Q15M PRN IM DECREASED GLUCOSE; Start 07/14/18 at 10:00 Glucose (Glutose) 15 gm Q15M PRN BUCCAL DECREASED GLUCOSE; Start 07/14/18 at 10:00 Allergies: Coded Allergies: No Known Allergy (Unverified , 07/13/18) Past Surgical History reviewed Social History Alcohol Use: none Smoking Status: Former smoker Drug Use: none KT HAIDER Jul 14, 2018 13:10 SALLY CANO NP Jul 14, 2018 14:26
[2018-07-14] MEDS ORDERED: ATORVASTATIN 80 MG TAB PO SCH (21:00)
[2018-07-15] VITALS: BP 142/81; PULSE 68; PULSE 70; RESP 19
[2018-07-15] MEDS ORDERED: ACCU-CHEK XX SCH (02:00)
[2018-07-15 03:53] VITALS: BP 146/86; RESP 19
[2018-07-15 04:00] VITALS: PULSE 65
[2018-07-15 07:49] VITALS: BP 135/83; PULSE 69; RESP 20
[2018-07-15 08:00] VITALS: PULSE 63
[2018-07-15] MEDS: ASPIRIN 81 MG TAB PO SCH (08:11)
[2018-07-15] MEDS: INSULIN ASPART [NOVOLOG] 3 ML PEN SC SCH (08:15)
--- NOTE | 2018-07-15 10:23 | PN ---
Date/Time of Note Date/Time of Note DATE: 07/15/18 TIME: 10:18 Assessment/Plan VTE Prophylaxis Risk score (from Ns)>0 risk: 4 SCD applied (from Ns): Yes Pharmacological prophylaxis: other Lines/Catheters IV C[facility]ter Type [facility]from [facility] Saline Lock Assessment/Plan Hospital Course S: No acute events overnight, seen by neurology team yesterday. MRI brain and carotid Doppler results reviewed. O: VS - see below PE: General: lying in bed in no acute distress HEENT: Atraumatic, normocephalic. The pupils are equal, round and reactive. Extraocular motor are intact Neck: Supple with full range of motion. Lungs: Clear to auscultation bilaterally no crackles rales or wheezing Heart: Normal S1-S2, Regular rhythm and rate. No murmur, S3, or S4 Abdomen: Surgical scar present of the lower abdomen, soft , nontender, nondistended , bowel sounds are present. No guarding no rebound tenderness Extremities: no edema no cyanosis Neurologic: No focal deficits A/P: 77-year-old male being admitted to the telemetry floor for observation for: #1 right-sided weakness: TIA versus CVA, presently the patient symptoms have resolved -MRI brain and carotid Doppler studies did not show any acute findings. -Follow-up results of echocardiogram. -For now continue aspirin and Lipitor - follow-up recommendations from neurology consultation. #2 Diabetes mellitus: Hemoglobin A1c 8.6. Patient currently on metformin only. -Monitor, sliding scale insulin #3 hypertension: Blood pressure presently stable -Monitor, consider restarting home blood pressure medicines Further treatment strategy will be implemented as per the clinical course. Result Diagram: 07/15/18 0538 07/15/18 0538 Results 24hrs Laboratory Tests Test 07/14/18 11:51 07/14/18 12:58 07/14/18 14:40 07/14/18 17:46 Bedside Glucose 188 181 Creatine Kinase 147 Creatine Kinase Index 1.9 Creatinine Kinase MB 2.78 H (Mass) Troponin I < 0.012 Erythrocyte 6 Sedimentation Rate Rapid Plasma Reagin NONREACTIVE Test 07/14/18 20:21 07/15/18 05:38 07/15/18 08:05 Bedside Glucose 157 146 White Blood Count 6.2 Red Blood Count 4.87 Hemoglobin 14.7 Hematocrit 43.4 Mean Corpuscular Volume 89.1 Mean Corpuscular 30.2 Hemoglobin Mean Corpuscular 33.9 Hemoglobin Concent Red Cell Distribution 11.7 Width Platelet Count 200 Mean Platelet Volume 11.3 H Immature Granulocytes % 0.500 H Neutrophils % 61.2 Lymphocytes % 20.4 Monocytes % 13.3 H Eosinophils % 4.0 Basophils % 0.6 Nucleated Red Blood 0.0 Cells % Immature Granulocytes # 0.030 Neutrophils # 3.8 Lymphocytes # 1.3 Monocytes # 0.8 Eosinophils # 0.3 Basophils # 0.0 Nucleated Red Blood 0.0 Cells # Sodium Level 138 Potassium Level 4.1 Chloride Level 102 Carbon Dioxide Level 29 Anion Gap 7 Blood Urea Nitrogen 22 H Creatinine 0.84 Est Glomerular Filtrat Rate mL/min Glucose Level 167 Calcium Level 9.5 Phosphorus Level 3.2 Magnesium Level 1.8 Exam/Review of Systems Exam Vitals Vital Signs Date Temp Pulse Resp B/P (MAP) Pulse Ox O2 O2 Flow FiO2 Time Delivery Rate 07/15/18 63 08:00 07/15/18 98.1 20 135/83 95 Room Air 07:49 (100) Intake and Output 07/14/18 07/14/18 07/15/18 1515:00 23:00 07:00 IntakeIntake Total 800 ml 400 ml OutputOutput Total 450 ml BalanceBalance 800 ml -50 ml Results Results 24hrs Laboratory Tests Test 07/14/18 11:51 07/14/18 12:58 07/14/18 14:40 07/14/18 17:46 Bedside Glucose 188 181 Creatine Kinase 147 Creatine Kinase Index 1.9 Creatinine Kinase MB 2.78 H (Mass) Troponin I < 0.012 Erythrocyte 6 Sedimentation Rate Rapid Plasma Reagin NONREACTIVE Test 07/14/18 20:21 07/15/18 05:38 07/15/18 08:05 Bedside Glucose 157 146 White Blood Count 6.2 Red Blood Count 4.87 Hemoglobin 14.7 Hematocrit 43.4 Mean Corpuscular Volume 89.1 Mean Corpuscular 30.2 Hemoglobin Mean Corpuscular 33.9 Hemoglobin Concent Red Cell Distribution 11.7 Width Platelet Count 200 Mean Platelet Volume 11.3 H Immature Granulocytes % 0.500 H Neutrophils % 61.2 Lymphocytes % 20.4 Monocytes % 13.3 H Eosinophils % 4.0 Basophils % 0.6 Nucleated Red Blood 0.0 Cells % Immature Granulocytes # 0.030 Neutrophils # 3.8 Lymphocytes # 1.3 Monocytes # 0.8 Eosinophils # 0.3 Basophils # 0.0 Nucleated Red Blood 0.0 Cells # Sodium Level 138 Potassium Level 4.1 Chloride Level 102 Carbon Dioxide Level 29 Anion Gap 7 Blood Urea Nitrogen 22 H Creatinine 0.84 Est Glomerular Filtrat Rate mL/min Glucose Level 167 Calcium Level 9.5 Phosphorus Level 3.2 Magnesium Level 1.8 Medications Medication Current Medications IV Flush (NS 3 ml) 3 ml PER PROTOCOL IV ; Start 07/13/18 at 21:30 Aspirin (Aspirin) 81 mg DAILY PO Last administered on 07/15/18at 08:11; Admin Dose 81 MG; Start 07/14/18 at 09:00 Acetaminophen (Tylenol Tab) 650 mg Q6H PRN PO .PAIN 1-3 OR TEMP; Start 07/13/18 at 21:30 Docusate Sodium (Colace) 100 mg Q12H PRN PO .CONSTIPATION; Start 07/13/18 at 21:30 Bisacodyl (Dulcolax) 5 mg DAILY PRN PO .CONSTIPATION; Start 07/13/18 at 21:30 Hydralazine HCl (Apresoline) 10 mg Q4H PRN IV ELEVATED BLOOD PRESSURE; Start 07/14/18 at 07:00 Diagnostic Test (Pha) (Accu-Chek) 1 ea 02 XX ; Start 07/15/18 at 02:00 Insulin Aspart (Novolog Insulin Pen) NOVOLOG *MILD* ALGORITHM WITH MEALS BEDTIME SC Last administered on 07/15/18at 08:15; Admin Dose 1 UNIT; Start 07/14/18 at 11:50 Miscellaneous Information 1 ea NOTE XX ; Start 07/14/18 at 10:00 Glucose (Glutose) 15 gm Q15M PRN PO DECREASED GLUCOSE; Start 07/14/18 at 10:00 Glucose (Glutose) 22.5 gm Q15M PRN PO DECREASED GLUCOSE; Start 07/14/18 at 10:00 Dextrose (D50w Syringe) 25 ml Q15M PRN IV DECREASED GLUCOSE; Start 07/14/18 at 10:00 Dextrose (D50w Syringe) 50 ml Q15M PRN IV DECREASED GLUCOSE; Start 07/14/18 at 10:00 Glucagon (Glucagen) 1 mg Q15M PRN IM DECREASED GLUCOSE; Start 07/14/18 at 10:00 Glucose (Glutose) 15 gm Q15M PRN BUCCAL DECREASED GLUCOSE; Start 07/14/18 at 10:00 Atorvastatin Calcium (Lipitor) 80 mg HS PO Last administered on 07/14/18at 20:22; Admin Dose 80 MG; Start 07/14/18 at 21:00 ARISTEO CABRAL Jul 15, 2018 10:23
--- NOTE | 2018-07-15 10:42 | CONS ---
Assessment/Plan Assessment/Plan Hospital Course 77 M c/ DM 2, who presents for evaluation of transient R arm and leg weakness and numbness for 5-10 minutes...for which neurology is consulted... The clinical picture is consistent w/ TIA. MRI brain was without acute ischemia. CUS and Echo are unremarkable. A1C 8.6%; LDL 119 P: Continue asa/lipitor daily for stroke prevention, indefinitely PT/OT/ST as necessary BP, glucose control and other medical management and supportive care per primary Neurologically cleared for d/c on asa and lipitor with op PCP follow up Consultation Date/Type/Reason Admit Date/Time Jul 13, 2018 at 21:27 Type of Consult Neurology Reason for Consultation weakness Requesting Provider: BEV FRISA Date/Time of Note DATE: 07/15/18 TIME: 10:39 24 HR Interval Summary Free Text/Dictation Continues acute care Exam Vital Signs Vitals Vital Signs Date Temp Pulse Resp B/P (MAP) Pulse Ox O2 O2 Flow FiO2 Time Delivery Rate 07/15/18 63 08:00 07/15/18 98.1 20 135/83 95 Room Air 07:49 (100) Intake and Output 07/14/18 07/14/18 07/15/18 1515:00 23:00 07:00 IntakeIntake Total 800 ml 400 ml OutputOutput Total 450 ml BalanceBalance 800 ml -50 ml Exam PE: Gen Appearance: No Apparent Distress HEENT: Normocephalic Cardiovascular: Regular rate Lungs: Clear bilaterally Abdomen: Soft Extremities: Dry NE: The patient was alert and oriented. Language was normal. Fund of knowledge was normal. Pupils were equal and reactive to light. There was no afferent pupillary defect. Visual ji were normal. Funduscopic examination was limited. Extra-ocular movements were full. Ptosis was absent. There was no nystagmus. Facial sensation was normal. Face was symmetric with normal strength. Hearing was intact. Palate movements were normal. Neck strength was normal. There was normal tongue bulk and speed of movement. Tone was normal. Muscle bulk was normal. I did not see fasciculations. Arms and legs were strong. Vibration sensation was normal. Temperature and pinprick sensation was normal. Rapid alternating movements were normal. There was no dysmetria. There was no intention tremor. Gait was deferred due to bedrest. Arm and leg reflexes were 2+ and symmetric. Cherry's sign was absent. Plantar responses were flexor. KT HAIDER Jul 15, 2018 10:42 SALLY CANO NP Jul 15, 2018 14:21
--- NOTE | 2018-07-15 10:44 | PDOCDIS ---
Discharge Instructions CONDITION [id number] Patient Condition: [id number] Stable HOME CARE INSTRUCTIONS: [id number] Diet Instructions: [id number] Low Fat /Cholesterol ACTIVITY: [id number] Activity Restrictions: [id number] Slowly Increase Activity Rest between Activity Avoid heavy lifting FOLLOW UP/APPOINTMENTS Follow-up Plan Please take your medications as prescribed, see your doctor in the clinic in the next 1 week. ARISTEO CABRAL Jul 15, 2018 10:44
[2018-07-15] MEDS ORDERED: ASPI-831 PO (10:45)
[2018-07-15] MEDS ORDERED: ATOR-2 PO (10:45)
--- NOTE | 2018-07-15 10:48 | DS ---
Date/Time of Note Date/Time of Note DATE: 07/15/18 TIME: 10:46 Discharge Summary Admission/Discharge Info Admit Date/Time Jul 13, 2018 at 21:27 Discharge Date/Time Discharge Diagnosis #1 right-sided weakness: Resolved now, likely secondary to TIA, evaluated by ne urology team #2 Diabetes mellitus: Hemoglobin A1c 8.6. 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 He states due to the weakness and numbness, he lost his balance and fell against something but did not his head. His weakness and numbness have resolved but he still feels somewhat dizzy and nauseated. He denies any vision disturbance, significant headache, focal weakness or numbness at this time. He is only on aspirin, no other blood thinners. Patient denied any chest pain or any shortness of breath. Hospital Course Patient was admitted to telemetry floor and seen by neurology team. He underwent MRI of the brain and carotid Doppler studies which both did not show any acute findings. Over the course of the hospital stay patient's right-sided weakness symptoms resolved. He was diagnosed with TIA. He was started on aspirin and Lipitor. Blood pressure remained stable. A1c was found to be 8.6, sugars were stable with appropriate inpatient medications given for this. He was able to ambulate, tolerated p.o. diet. Once given clearance by chain sales consultant teams he will be discharged home today and in improved condition. We are waiting for the final echocardiogram results as well. See below for full list of discharge medications. Home Meds Active Scripts Aspirin (Aspirin) 81 Mg Chew, 81 MG PO DAILY, #30 TAB 7 Refills Prov:ARISTEO CABRAL S. 07/15/18 Atorvastatin* (Atorvastatin*) 80 Mg Tablet, 80 MG PO HS, #30 TAB 7 Refills Prov:ARISTEO CABRAL S. 07/15/18 Reported Medications Amlodipine Besylate* (Amlodipine Besylate*) 10 Mg Tablet, 10 MG PO DAILY, #30 TAB 07/14/18 Benazepril Hcl* (Benazepril Hcl*) 40 Mg Tablet, 40 MG PO DAILY, #30 TAB 07/14/18 Hydrochlorothiazide* (Hydrochlorothiazide*) 50 Mg Tab, 50 MG PO DAILY, #30 TAB 07/14/18 Carvedilol* (Carvedilol*) 3.125 Mg Tablet, 3.125 MG PO BID, #60 TAB 07/14/18 Metformin Hcl* (Metformin Hcl*) 500 Mg Tablet, 500 MG PO BID WITH MEALS, #30 TAB 07/14/18 Follow-up Plan Please take your medications as prescribed, see your doctor in the clinic in the next 1 week. Primary Care Provider Not On Staff Doctor Time spent on discharge: > 30 minutes Pending Labs Laboratory Tests Test 07/14/18 11:51 07/14/18 12:58 07/14/18 14:40 07/14/18 17:46 Bedside 188 181 Glucose mg/dL (70-220) mg/dL (70-220) Creatine 147 Kinase IU/L (23-200) Creatine Kinase 1.9 Index Creatinine 2.78 Kinase MB ng/ml (0.0-2.4 (Mass) ) Troponin I < 0.012 ng/ml (0.000-0 .120) Erythrocyte 6 mm/Hr (0-20) Sedimentation Rate Rapid Plasma NONREACTIVE (N Reagin R) Test 07/14/18 20:21 07/15/18 05:38 07/15/18 08:05 Bedside 157 146 Glucose mg/dL (70-220) mg/dL (70-220) White Blood 6.2 Count 10^3/ul (4.8-1 0.8) Red Blood 4.87 Count 10^6/ul (4.70- 6.10) Hemoglobin 14.7 g/dl (14.0-18. 0) Hematocrit 43.4 % (42.0-52.0) Mean 89.1 Corpuscular fl (82.0-101.0 Volume ) Mean 30.2 Corpuscular pg (29.0-33.0) Hemoglobin Mean 33.9 Corpuscular g/dl (32.0-37. Hemoglobin Conc 0) ent Red Cell 11.7 Distribution % (11.5-14.5) Width Platelet Count 200 10^3/UL (140-4 15) Mean Platelet 11.3 Volume fl (7.4-10.4) Immature 0.500 Granulocytes % % (0.001-0.429 ) Neutrophils % 61.2 % (39.0-77.0) Lymphocytes % 20.4 % (15.0-51.0) Monocytes % 13.3 % (0.0-11.0) Eosinophils % 4.0 % (0.0-7.0) Basophils % 0.6 % (0.0-2.0) Nucleated Red 0.0 Blood Cells % /100WBC (0.0-0 .0) Immature 0.030 Granulocytes # 10^3/ul (0.0-0 .031) Neutrophils # 3.8 10^3/ul (1.6-7 .5) Lymphocytes # 1.3 10^3/ul (0.8-2 .9) Monocytes # 0.8 10^3/ul (0.3-0 .9) Eosinophils # 0.3 10^3/ul (0.0-0 .5) Basophils # 0.0 10^3/ul (0.0-0 .1) Nucleated Red 0.0 Blood Cells # 10^3/ul (0.0-0 .0) Sodium Level 138 mmol/L (135-14 4) Potassium 4.1 Level mmol/L (3.5-5. 1) Chloride Level 102 mmol/L (97-110 ) Carbon Dioxide 29 Level mmol/L (21-31) Anion Gap 7 (5-13) Blood Urea 22 Nitrogen mg/dl (7-20) Creatinine 0.84 mg/dl (0.61-1. 24) Est Glomerular mL/min (>60) Filtrat Rate mL/min Glucose Level 167 mg/dl (70-220) Calcium Level 9.5 mg/dl (8.4-10. 2) Phosphorus 3.2 Level mg/dl (2.5-4.9 ) Magnesium 1.8 Level mg/dl (1.7-2.5 ) ARISTEO CABRAL Jul 15, 2018 10:48
[2018-07-15 11:34] VITALS: BP 111/60; PULSE 78; RESP 18
[2018-07-15] MEDS ORDERED: INSULIN ASPART [NOVOLOG] 3 ML PEN SC SCH (11:50)
--- NOTE | 2018-07-15 12:12 | RADRPT ---
Echocardiogram Report Patient Name: MARKY LINDSEYPatient ID: [id number] : 1940 (77y 10m)Study Date: 07/14/2018 8:34:47 AM Gender: MAccession #: [id number] Tech: Hector Wells [facility] Location: 504-[address] Ref.Physician: BEV FRIAS Height(Cm): BSA: Weight(Kg): Quality: AdequateAccount #: Procedures: Echocardiographic Report: Transthoracic echocardiogram with complete 2D, M-Mode, and doppler examination. Indications: Transient Ischemic Attack w/ bubble study. Measurements: 2D/M Mode Doppler Measurement Value Normal Range Measurement Value Normal Range LVIDd 2D 4.6 [ 4.2 - 5.8 ] cm AV Peak Matt 1.3 [ 100.0 - 170.0 ] cm/sec LVIDs 2D 3.1 [ 2.5 - 4.0 ] cm AV Peak PG 6.0 [ 2.0 - 9.0 ] mmHg LVPWd 2D 0.8 [ 0.6 - 1.0 ] cm LVOT Peak Matt 0.9 [ 70.0 - 110.0 ] cm/sec IVSd 2D 1.6 [ 0.6 - 1.0 ] cm LVOT Peak PG 3.0 [ 2.0 - 6.0 ] mmHg AoR Diam 2D 3.1 [ 2.6 - 3.4 ] cm MV E Peak Matt 0.5 [ 60.0 - 130.0 ] cm/sec EDV 2D 97.8 [ 62.0 - 150.0 ] ml MV A Peak Matt 0.9 [ 100.0 - 120.0 ] cm/sec ESV 2D 39.1 [ 21.0 - 61.0 ] ml MV E/A 0.5 [ 0.8 - 1.5 ] ratio EF 2D 60.0 [ 52.0 - 72.0 ] percent MV Decel Time 250 [ 104 - 258 ] msec LA Dimen 2D 3.6 [ 3.0 - 4.0 ] cm Lat E` Matt 0.1 [ 10.0 - 15.0 ] cm/sec Lateral E/E` 5.2 [ 1.0 - 2.0 ] ratio MV E/A 0.5 [ 0.8 - 1.5 ] ratio TR Peak Matt 2.0 [ 100.0 - 280.0 ] cm/sec TR Peak PG 17.0 mmHg RVSP 20.0 [ 10.0 - 36.0 ] mmHg Findings: Left Ventricle: Normal left ventricular systolic function. Normal left ventricular cavity size. Sigmoid septum. Ejection fraction is visually estimated at 55 %. Tissue Doppler/Mitral Doppler indices are consistent with impaired relaxation (Stage I diastolic dysfunction). Right Ventricle: Normal right ventricular size. Normal right ventricular systolic function. Left Atrium: There is mild enlargement of left atrium. Right Atrium: The right atrium is normal in size. Atrial Septum: Bubble study was performed with and with out valsalva indicating no evidence of intra atrial shunt. Mitral Valve: Mild mitral leaflet calcification. Mild mitral annular calcification. Trace mitral regurgitation. Aortic Valve: Aortic sclerosis without significant stenosis. No aortic regurgitation. Tricuspid Valve: Normal appearance of the tricuspid valve. Estimated peak PA systolic pressure 20 mmHg. There is trace tricuspid regurgitation. Pericardium: Normal pericardium with no significant pericardial effusion. Aorta: Normal aortic root. IVC: Normal size and normal respiratory collapse consistent with normal right atrial pressure. Conclusions: Normal left ventricular systolic function. Normal left ventricular cavity size. Sigmoid septum. Ejection fraction is visually estimated at 55 %. Tissue Doppler/Mitral Doppler indices are consistent with impaired relaxation (Stage I diastolic dysfunction). No significant valvular stenosis or regurgitation seen. Bubble study was performed with and with out valsalva indicating no evidence of intra atrial shunt. Estimated peak PA systolic pressure 20 mmHg. Normal size and normal respiratory collapse consistent with normal right atrial pressure. Electronically Signed By: Jorge Nath 2018-07-15 12:10:43 PDT
[2018-07-16] MEDS ORDERED: ACCU-CHEK XX SCH (02:00)
== END 2018-07-15 13:33 | disposition home or self-care (01) ==
LOC: E/R 19:23 → TEL 21:27
PROVIDERS: ADMIT Family Medicine; ATTEND Hospitalist
DX: R53.1 Weakness (principal); E11.8 Type 2 diabetes mellitus with unspecified complications; I10 Essential (primary) hypertension; Z86.718 Personal history of other venous thrombosis and embolism; Z79.84 Long term (current) use of oral hypoglycemic drugs; Z79.82 Long term (current) use of aspirin
CPT/HCPCS: 36415; 70450; 70551; 71045; 80048; 80053; 80061; 80307; 81001; 82550; 82553; 82962; 83036; 83735; 84100; 84443; 84484; 85025; 85610; 85651; 85730; 86592; 93005; 93306; 93880; 97161; 97167; J1815; J3475; Z7500; Z7502; Z7610; G0378